=== PATIENT | female | born 1960 | race African-American/Black ===

== ENCOUNTER 2017-08-13 13:47 | Emergency (ER) | payer OTHER ==
[2017-08-13] MEDS ORDERED: HYDROXYZINE HCL INJ 50 MG/1 ML VIAL IM ONE (14:34)
[2017-08-13] MEDS ORDERED: PREDNISONE 20 MG TABLET PO ONE (15:49)
[2017-08-13] MEDS ORDERED: FAMOTIDINE 20 MG TABLET PO ONE (15:49)
--- NOTE | 2017-08-13 15:50 | ER Document Report ---
ED Medical Screen (RME) - General Chief Complaint: Allergic Reaction Stated Complaint: ITCHING/POSSIBLE ALLERGIC REACTION Time Seen by Provider: 08/13/17 14:34 Notes: Patient states she had foot surgery today. She states afterwards she had severe itching and told the postoperative staff. She states that they told her to follow-up with the emergency department. Patient states she is having severe itching. She denies any trouble with breathing. She states she has taken multiple doses of Benadryl with no relief. IM Vistaril was tried here in the emergency department with no further relief. Will try steroids and Pepcid and further observation. TRAVEL OUTSIDE OF THE [place] IN LAST 30 DAYS: No - Related Data Allergies/Adverse Reactions: acetaminophen [From Percocet] Allergy (Verified 08/13/17 14:07) clindamycin Allergy (Verified 08/13/17 14:07) codeine Allergy (Verified 08/13/17 14:07) dicyclomine Allergy (Verified 08/13/17 14:07) hydrocodone Allergy (Verified 08/13/17 14:07) oxycodone [From Percocet] Allergy (Verified 08/13/17 14:07) peanut Allergy (Verified 08/13/17 14:07) Penicillins Allergy (Verified 08/13/17 14:07) soy Allergy (Verified 08/13/17 14:07) tramadol Allergy (Verified 08/13/17 14:07) wheat Allergy (Verified 08/13/17 14:07) Past Medical History - Social History Chew tobacco use (# tins/day): No Frequency of alcohol use: None Drug Abuse: None - Past Medical History Cardiac Medical History: Reports: Hx Hypertension Endocrine Medical History: Reports: Hx Diabetes Mellitus Type 2 Renal/ Medical History: Denies: Hx Peritoneal Dialysis Past Surgical History: Reports: Hx Hysterectomy, Hx Orthopedic Surgery - R foot Physical Exam - Vital signs Vitals: Temp Pulse Resp BP Pulse Ox 98.1 F 104 H 20 140/68 H 94 08/13/17 14:19 08/13/17 14:19 08/13/17 14:19 08/13/17 14:19 08/13/17 14:19 Course - Vital Signs Vital signs: Temp Pulse Resp BP Pulse Ox 98.1 F 104 H 20 140/68 H 94 08/13/17 14:19 08/13/17 14:19 08/13/17 14:19 08/13/17 14:19 08/13/17 14:19
[2017-08-13] MEDS ORDERED: LORAZEPAM 1 MG TABLET PO ONE (16:57)
--- NOTE | 2017-08-13 17:04 | ER Document Report ---
ED Allergic Reaction - General Chief Complaint: Allergic Reaction Stated Complaint: ITCHING/POSSIBLE ALLERGIC REACTION Time Seen by Provider: 08/13/17 14:34 Mode of Arrival: Ambulatory Information source: Patient TRAVEL OUTSIDE OF THE [place] IN LAST 30 DAYS: No - HPI Patient complains to provider of: Patient is here with complaints of itching. Onset: Just prior to arrival Notes: Patient is here with complaints of itching. Patient has a long extensive allergy list. She had orthopedic pins placed in her right foot earlier today in [place]. She was given Versed, fentanyl and vancomycin. She has a splint placed on her right foot. She states that since having the surgery, she has been having a lot of itching. She states that she itches everywhere. She was given Benadryl postoperatively, she states that she took a half a bottle of Benadryl on her way here, she was given Vistaril here, Pepcid, prednisone but continues to have itching all over. No rash. No difficulty breathing or swallowing. No nausea, vomiting, diarrhea. She states that she feels like she is going crazy due to the itching. She denies any other complaints at this time. - Related Data Allergies/Adverse Reactions: acetaminophen [From Percocet] Allergy (Verified 08/13/17 14:07) clindamycin Allergy (Verified 08/13/17 14:07) codeine Allergy (Verified 08/13/17 14:07) dicyclomine Allergy (Verified 08/13/17 14:07) hydrocodone Allergy (Verified 08/13/17 14:07) oxycodone [From Percocet] Allergy (Verified 08/13/17 14:07) peanut Allergy (Verified 08/13/17 14:07) Penicillins Allergy (Verified 08/13/17 14:07) soy Allergy (Verified 08/13/17 14:07) tramadol Allergy (Verified 08/13/17 14:07) wheat Allergy (Verified 08/13/17 14:07) Past Medical History - Social History Smoking Status: Never Smoker Chew tobacco use (# tins/day): No Frequency of alcohol use: None Drug Abuse: None Family History: Reviewed & Not Pertinent Patient has suicidal ideation: No Patient has homicidal ideation: No - Past Medical History Cardiac Medical History: Reports: Hx Hypertension Endocrine Medical History: Reports: Hx Diabetes Mellitus Type 2 Renal/ Medical History: Denies: Hx Peritoneal Dialysis Past Surgical History: Reports: Hx Hysterectomy, Hx Orthopedic Surgery - R foot Review of Systems - Review of Systems -: Yes All other systems reviewed and negative Physical Exam - Vital signs Vitals: Temp Pulse Resp BP Pulse Ox 98.1 F 104 H 20 140/68 H 94 08/13/17 14:19 08/13/17 14:19 08/13/17 14:19 08/13/17 14:19 08/13/17 14:19 - Notes Notes: GENERAL: alert, cooperative, nontoxic, no distress. HEAD: normocephalic, atraumatic EYES: conjunctiva pink without discharge, no external redness or swelling. EARS: no external swelling, no external redness NOSE: atraumatic, no external swelling MOUTH/THROAT: mucous membranes moist and pink, posterior pharynx without erythema, swelling, exudate. No trismus or drooling. NECK: soft, supple, full range of motion, no meningismus. CHEST: no distress, lungs clear and equal throughout. No wheezing, rales, rhonchi. CARDIAC: regular rate and rhythm, no murmur, normal capillary refill, normal pulses. No peripheral edema noted. ABDOMEN: Soft, nontender. BACK: full range of motion, no CVA tenderness. EXTREMITIES: full range of motion of all extremities. No redness, no swelling. Postoperative splint in place to the right foot. NEURO: alert and oriented x 3, no focal deficits, full range of motion of all extremities. PYSCH: appropriate mood, affect. Patient is cooperative. SKIN: pink, warm, dry, no rash. Course - Re-evaluation Re-evalutation: 08/13/17 18:07 The patient is nontoxic appearing with stable vitals. The patient is here with complaints of generalized itching. She had orthopedic pins placed in her right foot earlier this morning and was given vancomycin, fentanyl, Versed. Since that time she has had a lot of itching. She has no rash. She has no lip or tongue swelling. She is in no distress. Vitals are stable. Lungs are clear. She states she was given Benadryl at the surgical center and took a half a bottle of Benadryl on her way here. She was given Vistaril, prednisone, Pepcid as well as Ativan here to help with her itching. She continues to have some itching but is in no other distress. Have no further medications to offer to help decrease her itching at this time. It is possible she could be having an allergic reaction to some of the medication she was given during her surgery, at this point she will need to wait for these medications to be metabolized and leave her system. This point the patient will be discharged home with small supply of prednisone. She was instructed to take no more Benadryl today. She can start taking Benadryl every 6 hours tomorrow. She is instructed to contact her surgeon at the next available appointment. Follow-up sooner for worsening pain, high fever, persistent vomiting, difficulty breathing or swallowing, or for any further concerns. Patient states that she feels like she is having some muscle spasms and is requesting a prescription for Flexeril. I will write her a small supply of Flexeril as well. The patient is noted to have elevated blood pressure during today's emergency department visit. The patient was informed of this finding. The patient was instructed that this may be related to pre-hypertension and requires further evaluation with a primary care provider. The patient has no hypertensive symptoms at this time. The patient's emergency department workup and current diagnosis were explained to the patient and or family. Follow-up instructions were provided. Medications if prescribed were discussed. Instructions for when to return to the emergency department including specific worrisome symptoms were discussed with the patient and/or family. - Vital Signs Vital signs: Temp Pulse Resp BP Pulse Ox 98.1 F 104 H 20 140/68 H 94 08/13/17 14:19 08/13/17 14:19 08/13/17 14:19 08/13/17 14:19 08/13/17 14:19 Discharge - Discharge Clinical Impression: Generalized pruritus Condition: Stable Disposition: HOME, SELF-CARE Instructions: Acute Allergic Reaction ([facility]), Acute Allergic Reaction to Drugs ( [facility]) Additional Instructions: Take medications as prescribed. Take no more Benadryl today. You can start taking Benadryl again tomorrow. Take 50 mg every 6 hours, but do not take more than that. Follow-up with your surgeon at the next available appointment. Follow-up sooner for worsening symptoms, difficulty breathing, lip or tongue swelling, or for any further concerns. Your blood pressure was elevated during today's visit. Have this rechecked with your doctor. Prescriptions: Prednisone [Deltasone 20 mg Tablet] 3 tab PO DAILY 2 Days tablet Forms: Elevated Blood Pressure, Smoking Cessation Education Referrals: [facility] [Provider Group] - Follow up as needed
[2017-08-13 18:50] VITALS: BP 124/80
== END 2017-08-13 18:50 | disposition home or self-care (01) ==
LOC: ER 13:47
DX: L29.9 Pruritus, unspecified (principal); I10 Essential (primary) hypertension; E11.9 Type 2 diabetes mellitus without complications; Z98.890 Other specified postprocedural states; Z79.899 Other long term (current) drug therapy
CPT/HCPCS: 99283; 96372; J3490; J7512